=== PATIENT | male | born 1955 | race Caucasian/White ===

== ENCOUNTER 2021-06-26 12:28 | Emergency (ER) | payer MEDICARE, BC ==
[~2021-06-26] VITALS: Ht 180.3 cm; Wt 97.5 kg
== END 2021-06-26 15:17 | disposition home or self-care (01) ==
LOC: ER 12:28
DX: S68.621A Partial traumatic transphalangeal amputation of left index finger, initial encounter (principal); X58.XXXA Exposure to other specified factors, initial encounter
CPT/HCPCS: 12001; 73140; 90471; 90714; 99282-25

== ENCOUNTER 2022-11-04 12:15 | Day surgery (SDC) | payer MEDICARE, BC ==
[~2022-11-04] VITALS: Ht 180.3 cm; Wt 96.3 kg
[~2022-11-04 12:15] MED LIST: ALFU10 PO; EZET10 PO; Prinivil10 MG PO
[2022-11-04] MEDS ORDERED: FINA5 (12:29)
[2022-11-04 14:36] VITALS: BP 105/74
== END 2022-11-04 14:56 | disposition home or self-care (01) ==
LOC: ORSCSDS 12:15
PROVIDERS: Internal Medicine Gastroenterology
PROC: 0DBP8ZX Excision of Rectum, Via Natural or Artificial Opening Endoscopic, Diagnostic (ICD-10-PCS; principal; 2022-11-04 13:30)
PROC: 0DBL8ZX Excision of Transverse Colon, Via Natural or Artificial Opening Endoscopic, Diagnostic (ICD-10-PCS; principal; 2022-11-04 13:30)
DX: Z12.11 Encounter for screening for malignant neoplasm of colon (principal); Z86.010 Personal history of colon polyps; Z83.71 Family history of colonic polyps; D12.3 Benign neoplasm of transverse colon; K62.1 Rectal polyp; K64.8 Other hemorrhoids; K57.30 Diverticulosis of large intestine without perforation or abscess without bleeding; E78.5 Hyperlipidemia, unspecified; I10 Essential (primary) hypertension; Z79.899 Other long term (current) drug therapy
CPT/HCPCS: 88305; J2704; J7120